=== PATIENT | female | born 1975 | race Caucasian/White ===

== ENCOUNTER 2017-11-27 08:36 | Inpatient (IN) | payer OTHER ==
[~2017-11-27] VITALS: Ht 172.7 cm; Wt 84.2 kg
[2017-11-27 08:39] VITALS: Ht 172.7 cm; Wt 84.2 kg
[2017-11-27 09:27] LABS: PLATELET COUNT 265 x10^3mcL (130-400); RED CELL DISTRIBUTION WIDTH 14.1 % (11.5-14.5)
[2017-11-27 09:56] LABS: CALCIUM 8.5 mg/dL (8.5-10.1); CARBON DIOXIDE 25.7 mmol/L (21-32); CHLORIDE SERUM 100 mmol/L (98-107); GFR1 > 60 mL/min; GLUCOSE SERUM 133 mg/dL (74-106); POTASSIUM SERUM 3.5 mmol/L (3.5-5.1); SODIUM SERUM 136 mmol/L (136-145)
[2017-11-27 10:00] LABS: ALBUMIN 3.6 g/dL (3.4-5.0); ALKALINE PHOSPHATASE 89 U/L (46-116); ALT/SGPT 36 U/L (14-59); AST/SGOT 22 U/L (15-37); TOTAL PROTEIN, SERUM 7.8 g/dL (6.4-8.2)
[2017-11-27 10:04] LABS: BASOPHIL % 0 % (0-2)
[2017-11-27 10:45] LABS: UA SPECIFIC GRAVITY >=1.030 (1.005-1.035); microscopic required? YES; urine erythrocyte 1+ (NEGATIVE)
[2017-11-27 13:28] LABS: MAGNESIUM 1.5 mg/dL (1.8-2.4); PHOSPHOROUS 2.5 mg/dL (2.5-4.9)
[2017-11-27 14:02] LABS: T3 TOTAL 0.87 ng/mL
[2017-11-27 14:03] LABS: FREE T4 0.81 ng/dL (0.76-1.46)
[2017-11-27 14:50] VITALS: BP 96/51
[2017-11-27 15:33] LABS: AMPHETAMINE QUAL UR NONE DETECTED (See below)
[2017-11-27 17:56] VITALS: BP 94/51
[2017-11-27 21:38] VITALS: BP 94/58
[2017-11-28 05:44] VITALS: BP 94/54
[2017-11-28 06:35] LABS: PLATELET COUNT 236 x10^3mcL (130-400); RED CELL DISTRIBUTION WIDTH 14.1 % (11.5-14.5)
[2017-11-28 07:08] LABS: CALCIUM 7.9 mg/dL (8.5-10.1); CARBON DIOXIDE 20.6 mmol/L (21-32); CHLORIDE SERUM 103 mmol/L (98-107); CHOLESTEROL 175 mg/dL (<200); CHOLESTEROL/HDL RATIO 3.9; GFR1 > 60 mL/min; GLUCOSE SERUM 139 mg/dL (74-106); HDL CHOLESTEROL 45 mg/dL (40-60); MAGNESIUM 2.5 mg/dL (1.8-2.4); PHOSPHOROUS 2.8 mg/dL (2.5-4.9); POTASSIUM SERUM 3.9 mmol/L (3.5-5.1); SODIUM SERUM 135 mmol/L (136-145); TRIGLYCERIDES 63 mg/dL (<150)
[2017-11-28 09:50] VITALS: BP 96/52
[2017-11-28 12:19] LABS: BAND NEUTROPHIL 5 % (0-10); MONOCYTE 7 % (0-7); SEGMENTED NEUTROPHILS 82 % (37-75)
[2017-11-28 12:20] LABS: PLATELET MORPHOLOGY PLATELETS NORMAL; rbc morphology (normal/abnorm) NORMAL (NORMAL)
[2017-11-28 13:42] VITALS: BP 119/71
[2017-11-28 17:58] VITALS: BP 108/66
[2017-11-28 21:10] VITALS: BP 106/66
[2017-11-28 21:13] VITALS: BP 98/62
[2017-11-29 06:00] VITALS: BP 114/68
[2017-11-29 07:02] LABS: CALCIUM 7.8 mg/dL (8.5-10.1); CARBON DIOXIDE 26.8 mmol/L (21-32); CHLORIDE SERUM 106 mmol/L (98-107); GFR1 > 60 mL/min; GLUCOSE SERUM 97 mg/dL (74-106); MAGNESIUM 2.3 mg/dL (1.8-2.4); PHOSPHOROUS 2.4 mg/dL (2.5-4.9); POTASSIUM SERUM 4.4 mmol/L (3.5-5.1); SODIUM SERUM 141 mmol/L (136-145)
[2017-11-29 07:13] LABS: BASOPHIL % 0.3 % (0-2); PLATELET COUNT 245 x10^3mcL (130-400)
[2017-11-29 07:41] LABS: RED CELL DISTRIBUTION WIDTH 14.7 % (11.5-14.5)
[2017-11-29 08:27] VITALS: BP 106/66
[2017-11-29 12:53] VITALS: BP 107/64
[2017-11-29 13:33] VITALS: BP 136/67
[2017-11-29 16:32] VITALS: BP 106/62
[2017-11-29 21:41] VITALS: BP 118/66
[2017-11-30 05:39] VITALS: BP 108/69
[2017-11-30 06:04] LABS: BASOPHIL % 0.6 % (0-2); PLATELET COUNT 310 x10^3mcL (130-400)
[2017-11-30 06:15] LABS: CALCIUM 8.2 mg/dL (8.5-10.1); CARBON DIOXIDE 26.5 mmol/L (21-32); CHLORIDE SERUM 106 mmol/L (98-107); CREATININE SERUM 0.9 mg/dL (0.6-1.0); GFR1 > 60 mL/min; GLUCOSE SERUM 94 mg/dL (74-106); MAGNESIUM 2.2 mg/dL (1.8-2.4); PHOSPHOROUS 3.5 mg/dL (2.5-4.9); SODIUM SERUM 140 mmol/L (136-145)
[2017-11-30 06:48] LABS: RED CELL DISTRIBUTION WIDTH 14.9 % (11.5-14.5)
[2017-11-30] MEDS ORDERED: CIPROFLOXACIN500 MG PO ×2 (07:58→08:04)
[2017-11-30] MEDS ORDERED: CLINDAMYCIN HC300 MG PO ×2 (07:59→08:04)
[2017-11-30] MEDS ORDERED: LAC PO ×2 (08:02→08:04)
[2017-11-30 08:46] VITALS: BP 129/83
[2017-11-30 11:05] VITALS: BP 129/83
== END 2017-11-30 12:38 | disposition home or self-care (01) | DRG 853 ==
LOC: ED 08:36 → MU 10:46 → DU 10:46 → MU 11-28 08:01
PROVIDERS: Emergency Medicine Emergency Medical Services; Family Medicine; Surgery
PROC: 0DTJ4ZZ Resection of Appendix, Percutaneous Endoscopic Approach (ICD-10-PCS; principal; 2017-11-27 12:30)
DX: A41.9 Sepsis, unspecified organism (principal); N17.0 Acute kidney failure with tubular necrosis; K35.2 Acute appendicitis with generalized peritonitis; E87.1 Hypo-osmolality and hyponatremia; R31.9 Hematuria, unspecified; D64.9 Anemia, unspecified; I10 Essential (primary) hypertension; E83.42 Hypomagnesemia; E78.5 Hyperlipidemia, unspecified; E86.0 Dehydration; E83.51 Hypocalcemia; E83.39 Other disorders of phosphorus metabolism; R73.03 Prediabetes; E02 Subclinical iodine-deficiency hypothyroidism; Z83.3 Family history of diabetes mellitus; Z82.49 Family history of ischemic heart disease and other diseases of the circulatory system; Z88.0 Allergy status to penicillin; Z88.8 Allergy status to other drugs, medicaments and biological substances
CPT/HCPCS: 83880; 84439; J0330; J0744; J1580; J1885; J2175; J2250; J2270; J2405; J2704; J2710; J3010; J3475; J3490; J7030; J7120; Q9967

== ENCOUNTER 2019-05-15 17:25 | Emergency (ER) | payer OTHER ==
[~2019-05-15] VITALS: Ht 172.7 cm; Wt 84.8 kg
[~2019-05-15 17:25] MED LIST: CIPROFLOXACIN500 MG PO; CLINDAMYCIN HC300 MG PO; LAC PO
[2019-05-15 17:38] VITALS: Ht 172.7 cm; Wt 84.8 kg
[2019-05-15 18:10] LABS: microscopic required? NO
[2019-05-15 18:21] LABS: UA SPECIFIC GRAVITY >=1.030 (1.005-1.035); urine erythrocyte NEGATIVE (NEGATIVE)
[2019-05-15 18:22] LABS: BASOPHIL % 0.5 % (0-2); PLATELET COUNT 313 x10^3mcL (130-400); RED CELL DISTRIBUTION WIDTH 17.2 % (11.5-14.5)
[2019-05-15 18:33] LABS: CALCIUM 8.6 mg/dL (8.5-10.1); CARBON DIOXIDE 29.4 mmol/L (21-32); CHLORIDE SERUM 106 mmol/L (98-107); CREATININE SERUM 0.9 mg/dL (0.6-1.0); GFR1 > 60 mL/min; GLUCOSE SERUM 96 mg/dL (74-106); SODIUM SERUM 144 mmol/L (136-145)
[2019-05-15 18:44] LABS: ALBUMIN 3.7 g/dL (3.4-5.0); ALKALINE PHOSPHATASE 96 U/L (46-116); ALT/SGPT 50 U/L (14-59); AST/SGOT 23 U/L (15-37); BILIRUBIN TOTAL 0.3 mg/dL (0.20-1.00); C REACTIVE PROTEIN 0.3 mg/dL (<=0.9); TOTAL PROTEIN, SERUM 7.9 g/dL (6.4-8.2)
[2019-05-15 18:58] LABS: CK-MB 0.9 ng/mL (0-3.6)
[2019-05-15 19:08] LABS: ERYTHROCYTE SED RATE 23 mm/hr (0-20)
[2019-05-15 19:15] VITALS: BP 130/79
== END 2019-05-15 19:15 | disposition home or self-care (01) ==
LOC: ED 17:25
PROVIDERS: Specialist
DX: R10.814 Left lower quadrant abdominal tenderness (principal); R10.12 Left upper quadrant pain; R63.0 Anorexia; M54.9 Dorsalgia, unspecified; Z90.89 Acquired absence of other organs; Z88.0 Allergy status to penicillin; Z91.018 Allergy to other foods
CPT/HCPCS: 36415